=== PATIENT | male | born 1940 | race Caucasian/White ===

== ENCOUNTER 2023-07-17 13:01 | Emergency (ER) | payer MEDICARE, OTHER, SELFPAY ==
[2023-07-17 13:27] VITALS: BP 132/68; PULSE 96; RESP 18; TEMP 37.1; O2SAT 96; BMI 25.3
--- NOTE | 2023-07-17 13:27 | ED_ITS ---
HPI - General Adult General Chief complaint: Extremity Problem Stated complaint: R leg swelling no inj/fever Time Seen by Provider: 07/17/23 18:40 Source: patient Mode of arrival: ambulatory Limitations: no limitations History of Present Illness HPI narrative: Patient is an 83 year old assigned male at with no reported medical history presenting to the emergency department today with right leg pain and left shoulder pain. Patient states that he has been seen multiple times for his left sided neck and shoulder pain and steroids seem to help but now he is having right lower leg pain with the left shoulder pain. Patient states that it is intermittently swelling. Patient denies any dizziness, lightheadedness, abdominal pain, nausea, vomiting, fever, chills, blurry vision, double vision, loss of vision, chest pain, difficulty breathing, shortness of breath, back pain, night sweats, pain with urination, increased urinary frequency, increased urinary urgency, blood in his urine or stool, syncope or a near syncopal episode, recent trauma or falls, bowel incontinence, bladder incontinence, bowel retention, bladder retention, or any other complaints at this time. Onset (ago): day(s) (2) Severity: mild Severity scale (1-10): 2 Relieving factors: none Exacerbating factors: none Associated symptoms: denies other symptoms Treatments prior to arrival: none Related Data Previous Rx's Medication Instructions Recorded prednisone 20 mg tablet 20 mg PO DAILY 7 days #7 tabs 07/17/23 Allergies Allergy/AdvReac Type Severity Reaction Status Date / Time No Known Allergies Allergy Verified 07/17/23 13:29 Review of Systems 2 Constitutional: Constitutional: Reports no additional constitutional complaints, Denies chills, Denies fever(s) and Denies night sweats Eyes: Eyes: Reports no additional eye complaints, Denies blurry vision, Denies change in vision, Denies diplopia, Denies eye discharge, Denies loss of vision and Denies eye pain ENT: Denies dizziness Cardiovascular: Cardiovascular: Reports no additional cardiovascular complaints, Denies chest pain, Denies lightheadedness, Denies Loss of Consciousness and Denies dyspnea Respiratory: Respiratory: Reports no additional respiratory complaints and Denies dyspnea Gastrointestinal: Gastrointestinal: Reports no additional gastrointestinal complaints, Denies abdominal pain, Denies melena, Denies hematochezia, Denies change in bowel habits and Denies change in stool character Genitourinary: Genitourinary: Reports no additional male genitourinary complaints, Denies hematuria, Denies oliguria, Denies difficulty urinating, Denies dysuria, Denies urinary frequency, Denies urinary hesitancy, Denies urinary incontinence and Denies urinary urgency Musculoskeletal: Musculoskeletal: Reports no additional musculoskeletal complaints, Denies numbness and Denies tingling Comments: right lower leg pain, left shoulder pain Neurologic: Denies dizziness, Denies loss of vision, Denies numbness and Denies tingling Psychiatric: Psychiatric: Reports no additional psychiatric complaints Endocrine: Endocrine: Reports no additional endocrine complaints Hematologic/Lymphatic: Hematologic/Lymphatic: Reports no additional hematologic/lymphatic complaints Allergic/Immunologic: Allergic/Immunologic: Reports no additional allergic/immunologic complaints PMFSH Past Medical History Attestation statement: The following information was validated with the patient. Source: old records reviewed and nursing notes reviewed Onset Date is defined in the Problem List Problems that require an onset date and time if occurred within 24 hrs of arrival to the ED Aortic Dissection and Rupture; Neurologic impairment; Cardiopulmonary Arrest; Endotracheal Intubation; Insertion or Replacement of Mechanical Circulatory Assist Device Social History Social History Advance Directives: No Advance Directives Information Provided: No Physical Exam ED Vital Signs: Vital Signs - 24 hr 07/17/23 13:27 07/17/23 18:16 Temperature 98.7 F 98.5 F Pulse Rate 96 93 Respiratory Rate 18 18 Blood Pressure 132/68 137/71 Pulse Oximetry 96 96 Oxygen Delivery Method Room Air Room Air BMI result Body Mass Index 25.3 Const General: cooperative, no acute distress, alert and awake Nutritional Appearance: well nourished Orientation/consciousness: patient oriented x3 Limitations: no limitations [facility] Head: Yes normal to inspection and Yes atraumatic Ears: hearing grossly normal bilaterally and external ears normal General nose exam: Normal external nose present, no nasal discharge noted and no epistaxis Face and sinus: Yes normal facial exam, No abrasion and No laceration Mouth: Normal oral and palatal mucosa present, no drooling and no muffled voice Eyes General: appearance normal, both eyes and all related structures Periorbital: periorbital findings normal Eyelids: Yes eyelids normal Conjunctivae: conjunctivae normal Pupils: Equal, round and reactive pupils present EOM: EOMs intact bilaterally Neck Neck: Yes normal visual inspection, Yes full ROM and Yes no lymphadenopathy Chest Chest palpation & inspection: normal inspection of the chest Resp Effort & Inspection: normal respiratory effort and able to speak in complete sentences GI Inspection: Yes normal to inspection Neuro General: patient oriented x3 and moves all extremities Cranial nerves: Yes Equal, round and reactive pupils present Cognition (Neuro): normal cognition Motor exam (neuro): 5/5 motor strength present throughout Sensory Exam: Normal double simultaneous stimulation for sensation Coordination: [id number] test normal Extrem General: Yes normal to inspection, Yes full ROM and Yes capillary refill normal Psych Appearance: grossly normal Mental Status: mental status grossly normal Affect: normal affect Attitude: cooperative Thought process: Normal thought process present Thought content: Normal thought content present Insight: Good insight present (Psych) Course Course Course Narrative: RME performed by Vandana Barba PA-C. Patient is an 83 year old assigned male at presenting to the emergency department with a fever and right lower leg swelling. Detailed physical exam and review of systems are deferred to the special forces warrant officer. Labs, imaging, and swabs ordered. Patient placed back in the waiting room pending room availability and results. Medical Decision Making Medical Decision Making MDM Narrative: Patient is an 83 year old assigned male at with no reported medical history presenting to the emergency department today with left shoulder pain and right lower leg pain. Patient's physical exam was unremarkable. Patient's blood work showed an elevated ESR of 15 and an elevated CRP of 15.83 but were otherwise unremarkable. Patient's US of the RLE showed no acute process. Patient's clinical presentation is most consistent with an inflammatory process causing both lower leg pain and left shoulder pain. There is no evidence of infection or DVT. I explained my physical exam findings as well as all test results to the patient. I answered all questions asked by the patient. I stressed the importance of the patient taking his medication as prescribed. I stressed the importance of the patient following up with his primary care provider. I stressed the importance of the patient returning to the emergency department immediately if his symptoms were to worsen or if he were to develop any dizziness, shortness of breath, difficulty breathing, chest pain, blurry vision, loss of vision, nausea, vomiting, abdominal pain, fever, chills, back pain, or any other complaints. Patient verbalized agreement and understanding with this treatment plan and discharge. Differential Diagnosis Differential Diagnoses: The differential diagnosis associated with the presentation includes RA Arthritis Inflammatory pain DVT Admission/Observation Consideration of admission/observation: Escalation of care including admission/observation considered Patient would have been admitted to the hospital had his work up had any findings where hospital admission was appropriate and his clinical presentation warranted hospital admission. Lab Data [facility] Lab Attestation statement: I reviewed the patient's lab results. My interpretation of these results are in the [facility] Rationale portion of this note. 07/17/23 14:52 07/17/23 14:52 Labs: Lab Results 07/17/23 Range/Units 14:52 WBC 9.3 (4.8-10.8) X10*3/uL RBC 4.45 L (4.60-5.80) X10*6/uL Hgb 13.0 L (14.0-18.0) g/dl Hct 40.8 L (42.0-52.0) % MCV 91.7 (80.0-98.0) fL MCH 29.2 (27.0-33.0) pg MCHC 31.9 (31.0-36.0) g/dl RDW 13.2 (11.0-16.0) % Plt Count 369 (160-400) X10*3/uL MPV 9.1 L (9.4-12.4) fL Immature Gran % (Auto) 0.8 H (0.0-0.4) % Neut % (Auto) 80.2 H (45-73) % Lymph % (Auto) 6.1 L (20-40) % [place] % (Auto) 11.4 H (2-11) % Eos % (Auto) 1.1 (0-4) % Baso % (Auto) 0.4 (0-2) % Lymph # (Auto) 0.6 L (1.2-4.9) X10*3/uL [place] # (Auto) 1.1 (0.1-1.2) X10*3/uL Eos # (Auto) 0.1 (0.0-0.4) X10*3/uL Baso # (Auto) 0.0 (0.0-0.2) X10*3/uL Abs Immat Gran (auto) 0.07 H (0.00-0.03) X10*3/uL Absolute Neuts (auto) 7.5 (2.0-8.3) x10*3/uL Absolute Nucleated RBC 0.000 (0.0-0.012) X10*3/uL Nucleated RBC % (auto) 0.0 (0.0-0.2) /100WBC ESR 67 H (0-15) MM/HR PT 14.5 H (11.1-13.3) SEC INR 1.2 H (0.9-1.1) APTT 33.2 (26.0-36.4) SEC Sodium 137 (135-145) mmol/L Potassium 4.1 (3.3-5.1) mmol/L Chloride 103 (96-108) mmol/L Carbon Dioxide 25 (22-29) mmol/L Anion Gap 13 (12-20) BUN 15 (9-16) mg/dL Creatinine 0.93 (0.5-1.4) mg/dL Estim Creat Clear Calc 60.2 Estimated GFR > 60 Random Glucose 123 H (60-115) mg/dL Calcium 9.0 (8.4-10.2) mg/dL Magnesium 2.2 (1.6-2.6) mg/dL Total Bilirubin 0.5 (0.0-1.0) mg/dL AST 19 (5-37) U/L ALT 26 (0-40) U/L Alkaline Phosphatase 94 (39-117) U/L C-Reactive Protein 15.83 H (< or = 0.50) mg/dL Total Protein 6.3 L (6.5-8.0) g/dL Albumin 3.2 L (3.5-5.0) g/dL Influenza Type A (PCR) NEGATIVE (Negative) Influenza Type B (PCR) NEGATIVE (Negative) RSV RNA Qual (PCR) NEGATIVE (Negative) SARS-CoV-2 RNA (RT-PCR) NEGATIVE (Negative) Independent Interpretation I performed an independent interpretation of an: Ultrasound Interpretation: My interpretation is in agreement with the radiologist's impression of this imaging study. - EXAMINATION: US VENOUS ULTRASOUND WITH DOPPLER LOWER EXTREMITY, RIGHT CLINICAL INFORMATION: Edema and pain, right lower extremity COMPARISON: None available. TECHNIQUE: Ultrasound of the deep veins is performed from the hip to the calf with compression sonography and color and pulse Doppler assessment. Spectral analysis with color-flow imaging is performed. FINDINGS: There is normal venous compression and respiratory variation and augmented flow. The visualized common femoral vein, superficial femoral vein, profunda femoral vein, popliteal vein, and the trifurcation region shows no evidence of deep venous thrombosis. There is no significant popliteal fossa cyst. If the patient's symptoms persist, followup ultrasound in 5 days 7 days might be of value to exclude proximal propagation from a non-visualized calf vein. US/US venous duplex LE RT IMPRESSION: No DVT demonstrated in the right lower extremity. Dictated By: Ignacio Singer Jr, DO Signed By: Electronically signed by Ignacio Singer Jr, DO 07/17/23 1425 Radiology Impression Discussion of test interpretation with radiology: I have reviewed the radiologist's reading. Discharge Plan Discharge Clinical Impression: Joint pain, Leg pain Patient Disposition: Home, Self-Care Instructions: Arthralgia (ED) Additional Instructions: Follow up with your primary care provider. Return to the emergency department immediately if your symptoms worsen or if you develop any dizziness, shortness of breath, difficulty breathing, chest pain, blurry vision, loss of vision, nausea, vomiting, abdominal pain, fever, chills, back pain, or any other complaints. Prescriptions: New prednisone 20 mg tablet 20 mg PO DAILY 7 Days Qty: 7 0RF Referrals: Mario Wiley MD [Primary Care Provider] - Interventions: ED Discharge Assessment Last Done: 07/17/23 18:40 Discharge Date/Time: 07/17/23 18:41 Print Language: Mongolian
[2023-07-17 18:16] VITALS: BP 137/71; PULSE 93; RESP 18; TEMP 36.9; O2SAT 96
== END 2023-07-17 18:41 | disposition home or self-care (01) ==
PROVIDERS: Emergency Provider Emergency Medicine; PCP Family Medicine
DX: M79.604 Pain in right leg (principal); R50.9 Fever, unspecified; R60.0 Localized edema; Z79.899 Other long term (current) drug therapy; Z20.822 Contact with and (suspected) exposure to COVID-19; Z20.828 Contact with and (suspected) exposure to other viral communicable diseases
CPT/HCPCS: 0241U; 80053; 83735; 85025; 85610; 85652; 85730; 86140; 93971; 99282; 99284

== ENCOUNTER 2025-03-21 07:50 | Emergency (ER) | payer MEDICARE, OTHER, SELFPAY ==
--- NOTE | ~2025-03-21 | US_ITS ---
EXAMINATION: US LOWER EXTREMITY VEINS WITH DOPPLER, LEFT CLINICAL INFORMATION: Leg pain. COMPARISON: None available. TECHNIQUE: Color-flow imaging with spectral analysis and compression Doppler were performed on the left lower extremity. FINDINGS: Respiratory variation, normal compression and augmented flow are noted throughout the left lower extremity. The visualized common femoral vein, femoral vein, profunda femoral vein, greater saphenous vein, popliteal vein and midcalf posterior tibial venous segments show no evidence of deep venous thrombosis. Note that the peroneal vein could not be well evaluated. US/US venous duplex LE LT IMPRESSION: No evidence of deep venous thrombosis in the evaluated veins of the left lower extremity. Electronically signed by: Refugio Dwyer MD 03/21/2025 09:39 AM EDT
--- NOTE | ~2025-03-21 | XR_ITS ---
EXAMINATION: XR FEMUR, LEFT CLINICAL INFORMATION: left lower thigh pain COMPARISON: None available. TECHNIQUE: AP and lateral views of the left femur were obtained. FINDINGS: No acute fracture is evident. There is mild axial joint space narrowing of the left hip joint. There is minimal narrowing of the medial joint space of the knee. There is mild medial subluxation of the distal femur in the joint. 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 Electronically signed by: Hai Lake MD 03/21/2025 12:01 PM EDT
[2025-03-21 07:56] VITALS: BP 135/60; PULSE 64; RESP 18; TEMP 36.3; O2SAT 98; BMI 24.9
[2025-03-21 08:11] LABS: MANUAL DIFF FLAG NO
[2025-03-21 08:12] LABS: Hematocrit 43.8 % (42.0-52.0); Hemoglobin 14.8 g/dl (14.0-18.0); Imm Gran Abs Auto 0.09 X10*3/uL (0.00-0.03); Imm Gran Pct Auto 1.2 % (0.0-0.4); Lymphocytes Absolute Auto 0.6 X10*3/uL (1.2-4.9); Mean Corpuscular HGB Conc 33.8 g/dl (31.0-36.0); Mean Corpuscular Hemoglobin 31.9 pg (27.0-33.0); Mean Corpuscular Volume 94.4 fL (80.0-98.0); NRBC Abs Auto 0.000 X10*3/uL (0.0-0.012); NRBC Pct Auto 0.0 /100WBC (0.0-0.2); Platelet Count 182 X10*3/uL (160-400); Red Blood Count 4.64 X10*6/uL (4.60-5.80); White Blood Count 7.5 X10*3/uL (4.8-10.8)
[2025-03-21 08:23] LABS: INTERNATIONAL NORM RATIO 1.0 (0.9-1.1); Prothrombin Time 11.3 SEC (10.9-12.4)
[2025-03-21 08:26] LABS: Partial Thromboplastin Time 31.6 SEC (26.7-34.1)
[2025-03-21 08:37] LABS: Alanine Aminotransferase 28 U/L (0-40); Albumin Level 4.0 g/dL (3.5-5.0); Alkaline Phosphatase 62 U/L (39-117); Anion Gap 11 (12-20); Aspartate Amino Transferase 28 U/L (5-37); Blood Urea Nitrogen 13 mg/dL (9-16); Calcium 8.7 mg/dL (8.4-10.2); Carbon Dioxide 30 mmol/L (22-29); Chloride 106 mmol/L (96-108); Creatinine Clr Calc Pharmacy 48.3; Estimated Glomerular Filt Rate > 60; Potassium 3.9 mmol/L (3.3-5.1); Sodium 143 mmol/L (135-145); Total Protein 6.2 g/dL (6.5-8.0)
--- NOTE | 2025-03-21 12:05 | ED.GENADULT ---
HPI - General Adult General Chief complaint: Extremity Injury, Lower Stated complaint: blood clot L leg Time Seen by Provider: 03/21/25 08:52 Source: patient Mode of arrival: ambulatory Limitations: no limitations History of Present Illness ED Provider: Ish Rhodes [facility] narrative: 85-year-old male history of DVT presents to ED for left lower thigh pain since yesterday without any trauma. Patient denies any swelling redness, ecchymosis, fever, chills, rash. Patient is now on any blood thinners so he came to the ED to be evaluated to make sure does not have a blood clot. Related Data Previous Rx's ?Medication ?Instructions ?Recorded prednisone 20 mg tablet 20 mg PO DAILY 7 days #7 tabs 07/17/23 Allergies Allergy/AdvReac Type Severity Reaction Status Date / Time shrimp Allergy Rash Verified 03/21/25 07:58 Review of Systems Review of Systems: Left lower thigh pain Yes all other systems are reviewed and are negative PMFSH Social History Social History Advance Directives: No Advance Directives Information Provided: Yes Physical Exam ED Vital Signs: Vital Signs - 24 hr 03/21/25 07:56 Temperature 97.3 F Pulse Rate 64 Respiratory Rate 18 Blood Pressure 135/60 Pulse Oximetry 98 Oxygen Delivery Method Room Air BMI result Body Mass Index 24.9 Const General: cooperative, healthy appearing, comfortable, no acute distress, well developed, alert, awake and Physically active Orientation/consciousness: patient oriented x3 HENMT Head: Yes normal to inspection, Yes No palpable skull fracture present, Yes normocephalic and Yes atraumatic Eyes General: appearance normal, both eyes and all related structures Neck Neck: Yes normal visual inspection, Yes full ROM, Yes no lymphadenopathy, Yes no meningeal signs, Yes trachea midline, Yes supple, No anterior neck swelling and No tender Chest Chest palpation & inspection: normal inspection of the chest and normal palpation of entire chest wall Resp Effort & Inspection: normal respiratory effort and able to speak in complete sentences Auscultation: clear to auscultation bilaterally Cardio Jugular venous distension: no JVD Heart sounds: S1 normal heart sound present and S2 normal heart sound present GI Inspection: Yes normal to inspection Palpation (GI): Soft to palpation, not firm, nontender, no guarding and not rigid General: Yes no CVA tenderness Back/Spine/Pelvis Back: no CVA tenderness and No back tenderness Skin General skin exam: no rashes or lesions noted, elasticity normal and turgor normal Neuro General: patient oriented x3, gait normal, tone normal, moves all extremities, Normal light touch and pain sensation, no meningeal signs, no focal motor deficits, CN's II-XI intact bilaterally and normal sensation to monofilament Extrem General: Yes normal to inspection, Yes full ROM and Yes capillary refill normal Upper/lower leg/hip images:  1. Positive for tenderness on palpation. Negative for crepitus, ecchymosis, deformity, erythema, stiffness, hotness, coldness. Rest of extremity normal. Motor/neuro/vascular exam intact. Psych Appearance: grossly normal, well kempt and not disheveled Medical Decision Making Medical Decision Making MDM Narrative: 85 year male presents to ED for left lower extremity pain without any trauma. Patient denies any swelling, redness, chest pain, shortness of breath or pleurisy. Labs ultrasound x-ray ordered 1:05pm: X-ray ultrasound came back normal. Patient is not in any distress. Patient to be discharged. Patient presently has no pain. Patient informed to take Motrin or Tylenol for pain at home. Not suspecting arterial occlusion, compartment syndrome, sepsis, osteomyelitis, necrotizing fasciitis, or any life-threatening etiology. Differential Diagnosis Differential Diagnoses: The differential diagnosis associated with the presentation includes (Thigh pain DVT, fracture) Admission/Observation Consideration of admission/observation: Escalation of care including admission/observation considered Lab Data [facility] Lab Attestation statement: I reviewed the patient's lab results. 03/21/25 08:04 03/21/25 08:04 Labs: Lab Results 03/21/25 03/21/25 Range/Units 08:04 08:06 WBC 7.5 (4.8-10.8) X10*3/uL RBC 4.64 (4.60-5.80) X10*6/uL Hgb 14.8 (14.0-18.0) g/dl Hct 43.8 (42.0-52.0) % MCV 94.4 (80.0-98.0) fL MCH 31.9 (27.0-33.0) pg MCHC 33.8 (31.0-36.0) g/dl RDW 13.2 (11.0-16.0) % Plt Count 182 D (160-400) X10*3/uL MPV 10.1 (9.4-12.4) fL Immature Gran % (Auto) 1.2 H (0.0-0.4) % Neut % (Auto) 77.4 H (45-73) % Lymph % (Auto) 7.9 L (20-40) % [place] % (Auto) 11.8 H (2-11) % Eos % (Auto) 1.2 (0-4) % Baso % (Auto) 0.5 (0-2) % Lymph # (Auto) 0.6 L (1.2-4.9) X10*3/uL [place] # (Auto) 0.9 (0.1-1.2) X10*3/uL Eos # (Auto) 0.1 (0.0-0.4) X10*3/uL Baso # (Auto) 0.0 (0.0-0.2) X10*3/uL Abs Immat Gran (auto) 0.09 H (0.00-0.03) X10*3/uL Absolute Neuts (auto) 5.8 (2.0-8.3) x10*3/uL Absolute Nucleated RBC 0.000 (0.0-0.012) X10*3/uL Nucleated RBC % (auto) 0.0 (0.0-0.2) /100WBC PT 11.3 (10.9-12.4) SEC INR 1.0 (0.9-1.1) APTT 31.6 (26.7-34.1) SEC Sodium 143 (135-145) mmol/L Potassium 3.9 (3.3-5.1) mmol/L Chloride 106 (96-108) mmol/L Carbon Dioxide 30 H (22-29) mmol/L Anion Gap 11 L (12-20) BUN 13 (9-16) mg/dL Creatinine 1.12 (0.5-1.4) mg/dL Estim Creat Clear Calc 48.3 Estimated GFR > 60 Random Glucose 101 (60-115) mg/dL Calcium 8.7 (8.4-10.2) mg/dL Total Bilirubin 0.6 (0.0-1.0) mg/dL AST 28 (5-37) U/L ALT 28 (0-40) U/L Alkaline Phosphatase 62 (39-117) U/L Total Protein 6.2 L (6.5-8.0) g/dL Albumin 4.0 (3.5-5.0) g/dL Independent Interpretation I performed an independent interpretation of an: Plain X-Ray and Ultrasound Radiology Impression Discussion of test interpretation with radiology: I have reviewed the radiologist's reading. Independent Historian Clinical information obtained from an independent historian. History obtained from or confirmed by: Other (Patient is) Prescription Management I considered prescription management with: Pain Medication Discharge Plan Discharge Clinical Impression: Thigh pain Patient Disposition: Home, Self-Care Instructions: Osteoarthritis (ED), Leg Pain (ED) Additional Instructions: Recommend follow-up with your primary care provider. Ultrasound x-ray labs came back reassuring. Continue taking [id number] Motrin/Tylenol for pain relief. Return to the ED immediately for any swelling of extremity, redness, calf pain, bluish discoloration, numbness/tingling, coldness, chest pain, shortness of breath, or any other concerning symptoms. Ordering Physician: Ish Rhodes Date of Service: 03/21/25 Procedure(s): XR femur LT 2V Accession Number(s): [id number] cc: Ish Rhodes; Mario Wiley MD~ Reason for Exam: left lower thigh pain EXAMINATION: XR FEMUR, LEFT CLINICAL INFORMATION: left lower thigh pain COMPARISON: None available. TECHNIQUE: AP and lateral views of the left femur were obtained. FINDINGS: No acute fracture is evident. There is mild axial joint space narrowing of the left hip joint. There is minimal narrowing of the medial joint space of the knee. There is mild medial subluxation of the distal femur in the joint. 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 Electronically signed by: Hai Lake MD 03/21/2025 12:01 PM EDT Dictated By: Hai Lake MD Signed By: <Electronically signed by Hai Lake MD in [place]> 03/21/25 Ordering Physician: Ish Rhodes Date of Service: 03/21/25 Procedure(s): US venous duplex LE LT Accession Number(s): [id number] cc: Ish Rhodes; Mario Wiley MD~ Reason for Exam: leg leg pain. EXAMINATION: US LOWER EXTREMITY VEINS WITH DOPPLER, LEFT CLINICAL INFORMATION: Leg pain. COMPARISON: None available. TECHNIQUE: Color-flow imaging with spectral analysis and compression Doppler were performed on the left lower extremity. FINDINGS: Respiratory variation, normal compression and augmented flow are noted throughout the left lower extremity. The visualized common femoral vein, femoral vein, profunda femoral vein, greater saphenous vein, popliteal vein and midcalf posterior tibial venous segments show no evidence of deep venous thrombosis. Note that the peroneal vein could not be well evaluated. US/US venous duplex LE LT IMPRESSION: No evidence of deep venous thrombosis in the evaluated veins of the left lower extremity. Electronically signed by: Refugio Dwyer MD 03/21/2025 09:39 AM EDT Dictated By: Refugio Dwyer MD Signed By: <Electronically signed by Refugio Dwyer MD in OV> 03/21/25 0939 Prescriptions: No Action prednisone 20 mg tablet 20 mg PO DAILY 7 Days Qty: 7 0RF Referrals: Mario Wiley MD [Primary Care Provider, Internal Medicine] - 2 days Referral Note: Left thigh pain Clinical Impression: Thigh pain Interventions: ED Discharge Assessment Last Done: 03/21/25 13:33 Discharge Date/Time: 03/21/25 13:33 Print Language: Telugu
[2025-03-21 13:33] VITALS: BP 135/60; PULSE 64; RESP 18; TEMP 36.3; O2SAT 98
== END 2025-03-21 13:33 | disposition home or self-care (01) ==
PROVIDERS: Physician Assistant; Emergency Provider Emergency Medicine; PCP Family Medicine
DX: M79.652 Pain in left thigh (principal); M19.90 Unspecified osteoarthritis, unspecified site; Z79.899 Other long term (current) drug therapy; Z86.718 Personal history of other venous thrombosis and embolism
CPT/HCPCS: 36415; 73552; 80053; 85025; 85610; 85730; 93971; 99282; 99284

== ENCOUNTER → 2025-03-21 08:03 | Outpatient (BNV) | payer MEDICARE, OTHER, SELFPAY | PROVIDERS: Emergency Provider Emergency Medicine; PCP Family Medicine; Visit Provider Radiology Body Imaging | DX: M79.605 Pain in left leg (principal) | CPT/HCPCS: 93971 ==